=== PATIENT | female | born 1995 | race Hispanic/Latino ===

== ENCOUNTER 2019-01-04 08:05 | Inpatient (IN) | payer MEDICAID ==
--- NOTE | 2019-01-04 10:04 | History and Physical Report ---
History of Present Illness Date of examination: 01/04/19 Date of admission: 01/04/19 08:05 Chief complaint: Induction of labor History of present illness: Pt is a 23yo WF EDC 01/07/19; EGA 39 4/7 weeks presents to L&D for induction of labor due to Obesity per [facility]. She received care at [facility] since 9 weeks and co-managed by [facility] for Obesity. records are available and GBS is Positive. Past History Past Medical History: no pertinent history Past Surgical History: no surgical history Family/Genetic History: none Social history: no significant social history, - Obstetrical History Expected Date of Delivery: 01/07/19 Actual Gestation: 39 Week(s) 4 Day(s) : 2 Medications and Allergies Allergies Allergy/AdvReac Type Severity Reaction Status Date / Time No Known Allergies Allergy Verified 12/27/18 12:46 Review of Systems All systems: negative - Vital Signs Vital signs: Vital Signs Pulse BP 115 H 132/88 01/04/19 08:54 01/04/19 08:54 Temp Pulse Resp BP Pulse Ox 115 H 132/88 01/04/19 08:54 01/04/19 08:54 - Physical Exam Breasts: Positive: deferred Cardiovascular: Regular rate Lungs: Positive: Clear to auscultation Abdomen: Positive: normal appearance Genitourinary (Female): Positive: normal external genitalia Vagina: Positive: normal moisture Uterus: Positive: enlarged Extremities: Positive: normal - Obstetrical FHR: category 1 Uterine Contraction Monitor Mode: External Results Result Diagrams: 01/04/19 10:30 All other labs normal. Assessment and Plan - Patient Problems (1) 39 weeks gestation of Onset Date: 01/04/19 Current Visit: Yes Status: Acute Plan to address problem: A: IUP @ 39 4/7 weeks +GBS P: Admit to L&D for cervidil/pitocin induction of labor IV Ampicillin
[2019-01-04] MEDS ORDERED: OXYTOCIN DRIP 30 UNITS/500 ML BAG IV SCH ×2 (11:00)
[2019-01-04] MEDS ORDERED: OXYTOCIN 20 UNIT/1000ML DRIP 20 UNITS/1,000 ML BAG IV SCH (11:00)
[2019-01-04] MEDS ORDERED: TERBUTALINE 1 MG/1 ML INJ SUB-Q PRN (11:00)
[2019-01-04] MEDS ORDERED: MINERAL OIL 30 ML ORAL LIQD PO PRN (11:00)
[2019-01-04] MEDS ORDERED: ONDANSETRON 4 MG/2 ML INJ IV PRN (11:00)
[2019-01-04] MEDS ORDERED: BUTORPHANOL 2 MG/1 ML INJ IV PRN (11:00)
[2019-01-04] MEDS ORDERED: ePHEDrine SULFATE 50 MG/1 ML INJ IV PRN (11:00)
[2019-01-04] MEDS ORDERED: TERBUTALINE 1 MG/1 ML INJ IVP PRN (11:00)
[2019-01-04] MEDS ORDERED: LIDOCAINE (2%) 20 MG/1 ML VIAL 20 ML MDV INFILTRATI NR (11:00)
[2019-01-04 11:13] LABS: Hemoglobin 13.3 gm/dl (10.1-14.3); Mean Corpuscular HGB Conc 34 % (30-34); Mean Corpuscular Volume 86 fl (79-97); Platelet Count 289 K/mm3 (140-440); Red Blood Count 4.56 M/mm3 (3.65-5.03); Red Cell Distribution Width 13.9 % (13.2-15.2)
[2019-01-04] MEDS ORDERED: AMPICILLIN/NS 2 GM/100 ML 2 GM/100 ML BAG IV ONE (11:30)
[2019-01-04] MEDS: LACTATED RINGERS 1,000 ML IV SCH (11:36)
[2019-01-04] MEDS ORDERED: DINOPROSTONE 10 MG VAG SUPP VG ONE (12:00)
[2019-01-04] MEDS ORDERED: ZOLPIDEM 10 MG TAB PO PRN (22:00)
[2019-01-05] MEDS ORDERED: DINOPROSTONE 10 MG VAG SUPP VG ONE (00:37)
[2019-01-05] MEDS: fentaNYL 100 MCG/2 ML INJ IV PRN ×2 (03:38→05:22)
[2019-01-05] MEDS: AMPICILLIN/NS 1 GM/50 ML 1 GM/50 ML BAG IV SCH ×4 (06:33→14:57)
--- NOTE | 2019-01-05 08:50 | Progress Note ---
Assessment and Plan - Patient Problems (1) 39 weeks gestation of Onset Date: 01/04/19 Current Visit: Yes Status: Acute Plan to address problem: A: IUP @ 39 5/7 weeks +GBS P: Continue with pitocin induction of labor IV Ampicillin Expectant vaginal delivery Subjective - Subjective Date of service: 01/05/19 Principal diagnosis: IUP @ 39 5/7 weeks; Obesity Interval history: Pt is a 23yo WF EDC 01/07/19; EGA 39 5/7 weeks presents to L&D for induction of labor due to Obesity per [facility]. She received care at [facility] since 9 weeks and co-managed by [facility] for Obesity. She received cervidil last night and currently bert q 4-6 mins and cervix dilated 3cm. GBS is Positive. Patient reports: movement normal, contractions, no new complaints, no loss of fluid, no vaginal bleeding Objective - Vital Signs Vital Signs: Vital Signs - 12hr 01/04/19 01/04/19 01/04/19 21:15 21:45 23:10 Temperature Pulse Rate 86 96 H 103 H Respiratory Rate Blood Pressure 142/79 123/74 124/78 Blood Pressure [Right] 01/05/19 01/05/19 01/05/19 00:55 01:55 02:55 Temperature Pulse Rate 97 H 95 H 113 H Respiratory Rate Blood Pressure 126/78 118/73 114/91 Blood Pressure [Right] 01/05/19 01/05/19 01/05/19 03:55 04:38 04:55 Temperature Pulse Rate 96 H 108 H Respiratory 16 Rate Blood Pressure 115/58 136/75 Blood Pressure [Right] 01/05/19 01/05/19 01/05/19 05:22 05:55 07:37 Temperature 98.7 F Pulse Rate 101 H 103 H Respiratory 16 16 Rate Blood Pressure 141/76 129/84 Blood Pressure 129/84 [Right] - Exam Abdomen: Present: normal appearance, soft Uterus: Present: normal FHR: category 1 Uterine Contraction Monitor Mode: External Cervical Dilatation: 3 (per nurse) Cervical Effacement Percentage: 50 (per nurse) station: -2 Uterine Contraction Pattern: Irregular Uterine Tone Measurement Phase: Contraction Uterine Contraction Intensity: Moderate - Labs Labs: Abnormal Labs 01/04/19 10:30 WBC 12.5 H Laboratory Results - last 24 hr 0901/04/19 01/04/19 10:30 10:30 10:30 WBC 12.5 H RBC 4.56 Hgb 13.3 Hct 39.0 MCV 86 MCH 29 MCHC 34 RDW 13.9 Plt Count 289 RPR Nonreactive Blood Type A POSITIVE Antibody Screen Negative
[2019-01-05] MEDS ORDERED: ePHEDrine SULFATE 50 MG/1 ML INJ IV PRN (11:47)
[2019-01-05] MEDS ORDERED: NALOXONE 2 MG/2 ML INJ IV PRN (11:47)
--- NOTE | 2019-01-05 11:49 | Anesthesia Consultation ---
Anesthesia Consult and Med Hx Date of service: 01/05/19 - Airway Intubation Access Assessment: Possibly Difficult - Pre-Operative Health Status ASA Pre-Surgery Classification: ASA2 Proposed Anesthetic Plan: Epidural - Pulmonary Hx Respiratory Symptoms: No - Cardiovascular System Hx Hypertension: No - Central Nervous System Hx Neuromuscular Disorder: No Hx Seizures: No CVA: No Hx Psychiatric Problems: No - Endocrine Hx Renal Disease: No Hx Liver Disease: No Hx Insulin Dependent Diabetes: No Hx Non-Insulin Dependent Diabetes: No Hx Thyroid Disease: No - Hematic Hx Anemia: No - Other Systems Hx Obesity: Yes
[2019-01-05] MEDS ORDERED: fentaNYL-BUPIV 2 MCG/ML-0.125% 200 MCG/100 ML BAG EPIDURAL SCH (12:00)
[2019-01-05] MEDS: LACTATED RINGERS 1,000 ML IV SCH (14:14)
[2019-01-05] MEDS ORDERED: BUPIVACAINE/PF (0.25%) 2.5 MG/ML 10 ML VIAL INFILTRATI ONE (16:03)
[2019-01-05] MEDS ORDERED: LIDOCAINE (2%) 20 MG/1 ML VIAL 20 ML MDV INFILTRATI ONE (16:28)
--- NOTE | 2019-01-05 17:02 | Procedure Note ---
OB Delivery Note - Delivery Date of Delivery: 01/05/19 Surgeon: RAFAEL PACHECO Estimated blood loss: 100cc - Vaginal Delivery presentation: vertex Delivery position: OA Intrapartum events: PROM->1hr before delivery Delivery induction: cervidil Delivery augmentation: rupture of membranes, pitocin Delivery monitor: external FHT, external uterine Route of delivery: Delivery placenta: spontaneous Delivery cord: nuchal cord (x2), 3 umbilical vessels Episiotomy: none Delivery laceration: none Anesthesia: epidural Delivery comments: Infant delivered OA and placed on Mom's chest for [id number] bonding and delayed cord clamping, cut by Dad - Infant A at 1 minute: 8 at 5 minutes: 9 Infant Gender: Male (3070gms)
[2019-01-05] MEDS ORDERED: HYDROcodone/ACETAMINOPHEN 5-325 MG TAB PO PRN (17:03)
[2019-01-05] MEDS ORDERED: ONDANSETRON 4 MG/2 ML INJ IV PRN (17:03)
[2019-01-05] MEDS ORDERED: MAGNESIUM HYDROXIDE (MOM) ORAL LIQD UDC PO PRN (17:03)
[2019-01-05] MEDS ORDERED: LANOLIN/ZINC/DIMETHICONE (LANSINOH) 7 GM TP PRN (17:03)
[2019-01-05] MEDS ORDERED: PROMETHAZINE 25 MG RECT SUPP PR PRN (17:03)
[2019-01-05] MEDS ORDERED: PROMETHAZINE 25 MG TAB PO PRN (17:03)
[2019-01-05] MEDS ORDERED: WITCH HAZEL/ GLYCERIN PAD TP PRN (17:03)
[2019-01-05] MEDS ORDERED: diphenhydrAMINE 25 MG CAP PO PRN (17:03)
[2019-01-05] MEDS ORDERED: ACETAMINOPHEN 325 MG TAB PO PRN (17:03)
[2019-01-05] MEDS ORDERED: OXYTOCIN 20 UNIT/1000ML DRIP 20 UNITS/1,000 ML BAG IV SCH (18:00)
[2019-01-05] MEDS ORDERED: METHYLERGONOVINE MALEATE 0.2 MG/ML VIAL IM ONE (19:23)
[2019-01-05] MEDS: FERROUS SULFATE 325 MG TAB PO SCH (23:55)
[2019-01-05] MEDS: DOCUSATE SODIUM 100 MG CAP PO SCH (23:55)
[2019-01-05] MEDS: IBUPROFEN 600 MG TAB PO SCH (23:55)
[2019-01-06 05:09] LABS: Hematocrit 33.1 % (30.3-42.9)
[2019-01-06] MEDS ORDERED: TETANUS,DIPH,PERTUSS(ACELL) VACCINE 0.5 ML SYRINGE IM ONE (06:00)
[2019-01-06] MEDS: IBUPROFEN 600 MG TAB PO SCH ×2 (06:14→13:40)
--- NOTE | 2019-01-06 09:45 | Progress Note ---
Assessment and Plan - Patient Problems (1) 39 weeks gestation of Onset Date: 01/04/19 Current Visit: Yes Status: Resolved (2) (normal spontaneous vaginal delivery) Onset Date: 01/06/19 Current Visit: Yes Status: Resolved Plan to address problem: A: S/P - PPD #1 Doing well Asymptomatic anemia - stable P: May go home tomorrow. Subjective - Subjective Date of service: 01/06/19 Principal diagnosis: s/p - PPD #1 Interval history: Pt is feeling well without complaints. Bleeding improved. Patient reports: appetite normal, voiding normally, pain well controlled, flatus, ambulating normally, no dizzy ambulation, no nauseated [place]: doing well, nursing well Objective - Vital Signs Latest vital signs: Vital Signs Temp Pulse Resp BP BP Pulse Ox 01/06/19 08:12 98.4 F 82 18 116/73 97 01/06/19 06:37 18 01/06/19 06:14 18 01/06/19 04:40 98.5 F 89 20 124/73 98 01/06/19 01:40 98.4 F 91 H 20 119/70 97 01/06/19 00:55 18 01/05/19 23:55 18 01/05/19 20:41 98.8 F 98 H 18 125/80 95 01/05/19 19:02 97 H 119/69 01/05/19 18:47 100 H 115/63 01/05/19 18:32 116 H 125/76 01/05/19 18:17 112 H 118/74 01/05/19 18:04 109 H 125/79 01/05/19 17:47 107 H 132/76 01/05/19 17:32 114 H 135/73 01/05/19 17:18 117 H 132/64 01/05/19 17:10 98.1 F 01/05/19 16:48 142 H 136/88 01/05/19 16:40 79 L 01/05/19 16:38 159 H 99 01/05/19 16:35 149 H 91 01/05/19 16:33 149 H 99 01/05/19 16:28 149 H 99 01/05/19 16:24 142 H 87 01/05/19 16:23 138 H 99 01/05/19 16:18 128 H 100 01/05/19 16:17 127 H 132/78 01/05/19 16:13 115 H 100 01/05/19 16:08 119 H 100 01/05/19 16:03 117 H 99 01/05/19 15:58 112 H 100 01/05/19 15:53 117 H 98 01/05/19 15:48 120 H 140/67 99 01/05/19 15:43 119 H 99 01/05/19 15:38 117 H 98 01/05/19 15:33 111 H 98 01/05/19 15:28 108 H 98 01/05/19 15:23 111 H 97 01/05/19 15:18 100 H 97 01/05/19 15:17 98 H 128/68 01/05/19 15:13 98 H 96 01/05/19 15:08 95 H 98 01/05/19 15:03 102 H 98 01/05/19 14:58 96 H 98 01/05/19 14:53 100 H 97 01/05/19 14:48 102 H 98 01/05/19 14:47 107 H 121/75 01/05/19 14:43 98 H 99 01/05/19 14:38 105 H 98 01/05/19 14:33 100 H 99 01/05/19 14:28 96 H 98 01/05/19 14:23 97 H 98 01/05/19 14:18 100 H 98 01/05/19 14:13 107 H 98 01/05/19 14:12 109 H 113/66 01/05/19 14:01 130 H 98 01/05/19 13:56 123 H 98 01/05/19 13:51 123 H 97 01/05/19 13:46 120 H 150/97 98 01/05/19 13:41 123 H 97 01/05/19 13:36 118 H 97 01/05/19 13:31 118 H 97 01/05/19 13:26 121 H 96 01/05/19 13:21 127 H 96 01/05/19 13:18 118 H 143/84 01/05/19 13:16 124 H 97 01/05/19 13:14 122 H 149/81 01/05/19 13:12 131 H 161/67 01/05/19 13:10 126 H 148/96 01/05/19 13:08 133 H 149/89 01/05/19 13:06 133 H 168/78 01/05/19 13:04 129 H 178/77 01/05/19 13:03 130 H 166/105 01/05/19 13:00 125 H 151/89 01/05/19 12:58 131 H 148/93 01/05/19 12:56 136 H 159/87 01/05/19 12:54 142 H 155/85 01/05/19 12:52 130 H 152/83 01/05/19 12:50 136 H 150/84 01/05/19 12:48 141 H 151/82 01/05/19 12:46 139 H 160/82 01/05/19 12:44 134 H 150/81 01/05/19 12:42 139 H 147/81 01/05/19 12:40 136 H 176/78 01/05/19 12:38 141 H 165/79 01/05/19 12:36 150 H 153/101 01/05/19 12:35 157 H 202/108 01/05/19 12:32 160 H 172/132 01/05/19 12:28 164 H 172/88 01/05/19 12:26 153 H 156/102 01/05/19 12:24 135 H 99 01/05/19 12:22 139 H 123/87 01/05/19 12:20 129 H 125/80 01/05/19 12:19 131 H 97 01/05/19 12:18 131 H 132/82 01/05/19 12:16 130 H 130/85 01/05/19 12:15 98.6 F 01/05/19 12:14 131 H 126/89 97 01/05/19 12:12 133 H 126/86 01/05/19 12:10 129 H 126/86 01/05/19 12:09 133 H 98 01/05/19 12:07 130 H 133/92 01/05/19 12:06 133 H 131/78 01/05/19 12:00 118 H 129/80 01/05/19 11:58 119 H 97 01/05/19 11:56 126 H 147/87 01/05/19 11:54 88 131/100 93 01/05/19 11:53 130 H 99 01/05/19 11:52 130 H 129/93 01/05/19 11:50 146 H 125/91 01/05/19 11:48 134 H 98 01/05/19 11:45 117 H 124/87 01/05/19 11:43 119 H 96 01/05/19 11:38 115 H 96 01/05/19 11:33 121 H 96 01/05/19 11:31 122 H 131/93 01/05/19 11:28 128 H 99 Intake and Output 01/05/19 01/06/19 01/06/19 22:59 06:59 14:59 Intake Total 143.867 480 Output Total 1100 1100 Balance -956.133 -620 Intake: IV 23.867 PITOCin/NS 30 UNIT/500ML 23.867 30 units In 500 ml @ 4 mls/hr IV TITR MERRICK Rx#: [id number] Oral 360 Intake, Free Water 120 120 Output: Urine 1100 1100 Indwelling Catheter 600 Self-Catheterization 200 Void 300 1100 Other: Total, Intake Amount 360 Total, Output Amount 300 600 # Voids Void 1 1 Estimated Blood Loss 100 - Exam Breasts: Present: deferred Abdomen: Present: normal appearance, soft Uterus: Present: normal, firm, fundal height below umbilicus Extremities: Present: normal - Labs Labs: Laboratory Tests 01/04/19 01/04/19 01/04/19 10:30 10:30 10:30 WBC 12.5 H RBC 4.56 Hgb 13.3 Hct 39.0 MCV 86 MCH 29 MCHC 34 RDW 13.9 Plt Count 289 RPR Nonreactive Blood Type A POSITIVE Antibody Screen Negative 01/06/19 04:38 WBC RBC Hgb 11.0 Hct 33.1 MCV MCH MCHC RDW Plt Count RPR Blood Type Antibody Screen
[2019-01-06] MEDS: DOCUSATE SODIUM 100 MG CAP PO SCH (13:40)
[2019-01-06] MEDS: PRENATAL VIT27-FE FUMARATE-FOLIC ACID VIT TAB PO SCH (13:40)
[2019-01-06] MEDS: FERROUS SULFATE 325 MG TAB PO SCH (13:40)
[2019-01-06] MEDS ORDERED: MEASLES, MUMPS & RUBELLA 12,500 UNIT/0.5 ML VACCINE SUB-Q ONE (17:03)
[2019-01-07] MEDS: FERROUS SULFATE 325 MG TAB PO SCH ×3 (00:11→21:48)
[2019-01-07] MEDS: IBUPROFEN 600 MG TAB PO SCH ×2 (00:11→05:39)
[2019-01-07] MEDS: DOCUSATE SODIUM 100 MG CAP PO SCH ×3 (00:11→21:48)
--- NOTE | 2019-01-07 10:31 | Discharge Summary ---
Providers - Providers Date of Admission: 01/04/19 08:05 Date of discharge: 01/07/19 Attending physician: RAFAEL PACHECO Primary care physician: RAFAEL PACHECO Hospitalization Reason for admission: induction of labor, IUP at term Delivery: Episiotomy: none Laceration: none Other procedures: none complications: none Discharge diagnosis: IUP at term delivered [place] baby: male Hospital course: Unremarkable. Condition at discharge: Good Disposition: DC-01 TO HOME OR SELFCARE - Discharge Diagnoses (1) 39 weeks gestation of Status: Resolved (2) (normal spontaneous vaginal delivery) Status: Resolved Plan - Discharge Medications Prescriptions: Ferrous Sulfate [Feosol 325 MG tab] 325 mg PO BID #60 tablet Ibuprofen [Motrin 600 MG tab] 600 mg PO Q6HR #30 tablet Vit-Fe Fumar-FA [ Vitamin] 1 each PO QDAY #30 tablet - Provider Discharge Summary Activity: routine, no sex for 6 weeks, no heavy lifting 4 weeks, no strenuous exercise Diet: routine Instructions: routine Additional instructions: [] Smoking cessation referral if applicable(refer to patient education folder for contact #) [] Refer to [facility]'s [facility] Booklet Call your doctor immediately for: * Fever > 100.5 * Heavy vaginal bleeding ( >1 pad per hour) * Severe persistent headache * Shortness of breath * Reddened, hot, painful area to leg or breast * Drainage or odor from incision. * Keep incision clean and dry at all times and follow doctor's instructions regarding bathing/showering - Follow up plan Follow up: RAFAEL PACHECO MD [Primary Care Provider] - 6 Weeks ELEANOR RAY NP [Referring] - 6 Weeks
[2019-01-07] MEDS: PRENATAL VIT27-FE FUMARATE-FOLIC ACID VIT TAB PO SCH (10:36)
[2019-01-07 23:11] VITALS: BP 122/76
== END 2019-01-07 23:20 | disposition home or self-care (01) | DRG 775 ==
LOC: LD 08:05 → OB 01-05 20:32
PROVIDERS: ADMIT Obstetrics & Gynecology; ATTEND Obstetrics & Gynecology
PROC: 3E0P7VZ Introduction of Hormone into Female Reproductive, Via Natural or Artificial Opening (ICD-10-PCS; principal; 2019-01-05)
PROC: 10E0XZZ Delivery of Products of Conception, External Approach (ICD-10-PCS; 2019-01-05)
PROC: 3E0R3BZ Introduction of Anesthetic Agent into Spinal Canal, Percutaneous Approach (ICD-10-PCS; 2019-01-05)
PROC: 00HU33Z Insertion of Infusion Device into Spinal Canal, Percutaneous Approach (ICD-10-PCS; 2019-01-05)
PROC: 3E0234Z Introduction of Serum, Toxoid and Vaccine into Muscle, Percutaneous Approach (ICD-10-PCS; 2019-01-06)
DX: O99.214 Obesity complicating childbirth (principal); Z37.0 Single live birth; E66.9 Obesity, unspecified; O99.824 Streptococcus B carrier state complicating childbirth; O69.81X0 Labor and delivery complicated by cord around neck, without compression, not applicable or unspecified; O42.92 Full-term premature rupture of membranes, unspecified as to length of time between rupture and onset of labor; O90.81 Anemia of the puerperium; D64.9 Anemia, unspecified; Z23 Encounter for immunization; Z3A.39 39 weeks gestation of pregnancy
CPT/HCPCS: 36415; 59200; 85014; 85018; 85027; 86592; 86850; 86900; 86901; 90471; 90715; G0378; J0290; J0595; J2210; J2590; J3010; J7120

== ENCOUNTER 2020-02-08 22:18 | Outpatient (CLI) | payer MEDICAID ==
[2020-02-08 22:49] VITALS: BP 132/64
[2020-02-08] MEDS ORDERED: LACTATED RINGERS 1,000 ML IV ONE (22:59)
--- NOTE | 2020-02-09 00:12 | Ultrasound Report ---
ULTRASOUND OBSTETRIC LIMITED ULTRASOUND BIOPHYSICAL PROFILE INDICATION / CLINICAL INFORMATION: well-being. Clinical Gestational Age (GA): 32.3 weeks.days COMPARISON: None available. FINDINGS: BREATHING MOVEMENT = 2 GROSS BODY MOVEMENT = 2 TONE = 2 QUALITATIVE AMNIOTIC FLUID VOLUME = 2 TOTAL BIOPHYSICAL SCORE = 8/8 HEART RATE (beats per minute): 141 AMNIOTIC FLUID INDEX (cm) = 11.4 (normal = 7-24 cm) PRESENTATION: Cephalic. ADDITIONAL FINDINGS: None. IMPRESSION: 1. Biophysical Score = 8/8 2. RODRIGUEZ 11.4 cm Signer Name: Floyd Carreno MD Signed: 02/09/2020 12:07 AM Workstation Name: [id number]
== END 2020-02-09 00:03 | disposition home or self-care (01) ==
LOC: TRG 22:18 → APU 22:19 → TRG 02-09 00:03
PROVIDERS: ATTEND Obstetrics & Gynecology
DX: O42.913 Preterm premature rupture of membranes, unspecified as to length of time between rupture and onset of labor, third trimester (principal); Z3A.32 32 weeks gestation of pregnancy
CPT/HCPCS: 59025; 76815; 76819

== ENCOUNTER 2020-03-17 12:22 | Inpatient (IN) | payer MEDICAID ==
[2020-03-17] MEDS ORDERED: TERBUTALINE 1 MG/1 ML INJ SUB-Q PRN (14:34)
[2020-03-17] MEDS ORDERED: AMPICILLIN/NS 2 GM/100 ML 2 GM/100 ML BAG IV ONE (14:34)
[2020-03-17] MEDS ORDERED: fentaNYL 100 MCG/2 ML INJ IV PRN (14:34)
[2020-03-17] MEDS ORDERED: LIDOCAINE (2%) 20 MG/1 ML VIAL 20 ML MDV INFILTRATI ONE (14:34)
[2020-03-17] MEDS ORDERED: MINERAL OIL 30 ML ORAL LIQD PO PRN (14:34)
--- NOTE | 2020-03-17 14:45 | History and Physical Report ---
History of Present Illness Date of examination: 03/17/20 Date of admission: 03/17/2020 Chief complaint: Leaking of water from vagina History of present illness: 24 year old presents to L&D with complaint of leaking of fluid from vagina since 10:30 AM today. Patient states she receives care from [facility]; records are not available. labs were drawn upon admission. Patient denies any complications during this except for LGA. She reports she is not allergic to any medications. She reports a history of 2 previous vaginal births without complications. Past History Past Medical History: other (obesity) Past Surgical History: no surgical history QUALITY REVIEWER History: denies: chlamydia, gonorrhea, hepatitis B, hepatitis C, herpes, HIV, syphilis, trichomonas Family/Genetic History: none Social history: no significant social history, full code. denies: smoking, alcohol abuse, prescription drug abuse, IV drug use - Obstetrical History Expected Date of Delivery: 04/01/20 Actual Gestation: 37 Week(s) 6 Day(s) : 3 Para: 2 Hx # Term Pregnancies: 2 Number of Pregnancies: 0 Spontaneous Abortions: 0 Induced : 0 Number of Living Children: 2 Medications and Allergies Allergies Allergy/AdvReac Type Severity Reaction Status Date / Time No Known Allergies Allergy Verified 12/27/18 12:46 Home Medications Medication Instructions Recorded Confirmed Last Taken Type Ferrous Sulfate [Feosol 325 MG tab] 325 mg PO BID #60 tablet 01/07/19 Unknown Rx Ibuprofen [Motrin 600 MG tab] 600 mg PO Q6HR #30 tablet 01/07/19 Unknown Rx Vit-Fe Fumar-FA [ 1 each PO QDAY #30 tablet 01/07/19 Unknown Rx Vitamin] Active Meds: Active Medications Ephedrine Sulfate (Ephedrine Sulfate) 10 mg IV Q2M PRN PRN Reason: Hypotension Fentanyl (Sublimaze) 100 mcg IV Q2H PRN PRN Reason: Pain,Severe (7-10) LABOR PAIN Oxytocin/Sodium Chloride (Pitocin/Ns 30 Unit/500ml) 30 units in 500 mls @ 2 mls/hr IV TITR MERRICK; Protocol Lactated Ringer's (Lactated Ringers) 1,000 mls @ 125 mls/hr IV DIRECT MERRICK Oxytocin/Sodium Chloride (Pitocin/Ns 30 Unit/500ml) 30 units in 500 mls @ 40 mls/hr IV TITR MERRICK; Protocol Ampicillin Sodium (Ampicillin/Ns 2 Gm/100 Ml) 2 gm in 100 mls @ 100 mls/hr IV ONCE ONE; Protocol Stop: 03/17/20 15:33 Ampicillin Sodium (Ampicillin/Ns 1 Gm/50 Ml) 1 gm in 50 mls @ 100 mls/hr IV Q4HR MERRICK; Protocol Mineral Oil (Mineral Oil) 30 ml PO QHS PRN PRN Reason: Constipation Terbutaline Sulfate (Brethine) 0.25 mg SUB-Q ONCE PRN PRN Reason: Hyperstimulation/Hypertonicity Review of Systems All systems: negative (leaking of clear water from vagina since 10:30 am today) - Vital Signs Vital signs: Vital Signs Pulse BP Pulse Ox 108 H 137/83 93 03/17/20 13:11 03/17/20 13:11 03/17/20 13:11 Temp Pulse Resp BP Pulse Ox 98.8 F 98 H 18 125/73 97 03/17/20 13:14 03/17/20 14:38 03/17/20 13:14 03/17/20 14:35 03/17/20 14:38 - Physical Exam Abdomen: Positive: normal appearance, soft. Negative: distention, tenderness, guarding, rigidity Genitourinary (Female): Positive: normal external genitalia, normal perenium. Negative: perineal/vulvar lesions Vagina: Positive: other (clear fluid) Uterus: Positive: enlarged. Negative: tender Anus/Rectum: Positive: normal perianal skin Extremities: Positive: edema (mild bilateral dependent edema). Negative: tenderness - Obstetrical FHR: category 1 Uterine Contraction Monitor Mode: External Cervical Dilatation: 4 Cervical Effacement Percentage: 90 station: -3 Uterine Contraction Pattern: Regular Uterine Contraction Intensity: Moderate Results All other labs normal. Assessment and Plan A: at 37 weeks, 6 days gestation (by patient self report). Spontaneous rupture of membranes. Labor. GBS unknown. No records available. P: Admit. Draw labs. Request records. US for EDC, EGA, EFW, and location of placenta. GBS prophylaxis. Pitocin augmentation if no cervical change in several hours (since SROM).
--- NOTE | 2020-03-17 14:52 | Anesthesia Consultation ---
Anesthesia Consult and Med Hx Date of service: 03/17/20 - Airway Anesthetic Teeth Evaluation: Good ROM Head & Neck: Adequate Mental/Hyoid Distance: Adequate Mallampati Class: Class II Intubation Access Assessment: Probably Good - Pulmonary Exam CTA: Yes - Cardiac Exam Cardiac Exam: RRR - Pre-Operative Health Status ASA Pre-Surgery Classification: ASA2 Proposed Anesthetic Plan: Epidural - Pulmonary Hx Asthma: No Hx Respiratory Symptoms: No COPD: No Hx Pneumonia: No - Cardiovascular System Hx Hypertension: No - Central Nervous System Hx Neuromuscular Disorder: No Hx Seizures: No CVA: No Hx Psychiatric Problems: No - Endocrine Hx Renal Disease: No Hx End Stage Renal Disease: No Hx Liver Disease: No Hx Insulin Dependent Diabetes: No Hx Non-Insulin Dependent Diabetes: No Hx Thyroid Disease: No Hx Hypothyroidism: No Hx Hyperthyroidism: No - Hematic Hx Anemia: No Hx Sickle Cell Disease: No - Other Systems Hx Alcohol Use: (not since ) Hx Obesity: Yes
[2020-03-17] MEDS ORDERED: OXYTOCIN DRIP 30 UNITS/500 ML BAG IV SCH ×2 (15:00)
--- NOTE | 2020-03-17 16:36 | Ultrasound Report ---
ULTRASOUND OBSTETRIC INDICATION / CLINICAL INFORMATION: EGA, EDC, EFW, location of placenta. Clinical Gestational Age (GA): 37 weeks 6 days TECHNIQUE: Transabdominal. COMPARISON: OB ultrasound 02/08/2020 FINDINGS: There is a single intrauterine . Biparietal Diameter = 9.6 cm = 39 weeks, 1 day(s). Head Circumference = 33.7 cm = 38 weeks, 4 day(s). Abdominal Circumference = 35.9 cm = 39 weeks, 5 day(s). Femur Length = 7.1 cm = 36 weeks, 2 day(s). Average Ultrasound Age (AUA) = 36 weeks, 3 day(s). Heart Rate: 129 beats per minute. Estimated Weight in grams (if calculated): 3599 Estimated Weight Growth Percentile (if calculated): Position: cephalic. Cervix: closed. Length in cm (if measured): Placenta: anterior and free of the os. Amniotic Fluid Volume: decreased Amniotic Fluid Index (RODRIGUEZ) in cm (if calculated): 2.3. Maternal Adnexa: No significant abnormality. IMPRESSION: 1. Single, living intrauterine with estimated sonographic age of 38 weeks, 3 day(s). 2. Oligohydramnios Signer Name: Iglesia Bueno MD Signed: 03/17/2020 4:31 PM Workstation Name: [id number]
[2020-03-17 16:49] LABS: Hematocrit 39.7 % (30.3-42.9); Hemoglobin 13.2 gm/dl (10.1-14.3); Mean Corpuscular HGB Conc 33 % (30-34); Mean Corpuscular Volume 86 fl (79-97); Platelet Count 295 K/mm3 (140-440); Red Blood Count 4.62 M/mm3 (3.65-5.03); Red Cell Distribution Width 13.9 % (13.2-15.2)
[2020-03-17] MEDS: LACTATED RINGERS 1,000 ML IV SCH ×2 (17:04→22:12)
[2020-03-17 17:06] LABS: Hepatitis C Virus Antibody Non-Reactive (NonReactive)
[2020-03-17] MEDS ORDERED: AMPICILLIN/NS 1 GM/50 ML 1 GM/50 ML BAG IV SCH (18:37)
[2020-03-17] MEDS ORDERED: ePHEDrine SULFATE 50 MG/1 ML INJ IV PRN (21:22)
[2020-03-17] MEDS ORDERED: NALOXONE 2 MG/2 ML INJ IV PRN (21:22)
--- NOTE | 2020-03-17 21:22 | Progress Note ---
Labor Epidural - Labor Epidural Start Time: 21:13 Stop Time: 21:17 Performed by:: BRAIN RIDER Procedure: Patient is requesting epidural for labor pain. H&P, and labs reviewed. Procedure explained, questions answered, consent obtained. Patient in sitting position with blood pressure cuff and pulse ox on and working. Timeout performed immediately before start of procedure. Sterile betadine prep/drape. 3 mL 1% lidocaine skin wheal at L[3]-L[4]. 18-gauge SupportSpace epidural needle advanced to [id number] with saline at [7] cm. Epidural dexmedetomidine [30] mcg administered. Epidural catheter advanced to [12] cm, negative aspiration for blood and csf, negative test dose 3 ml 1.5% lidocaine with epinephrine. Sterile steri-strips and tegaderm applied, followed by tape reinforcement. Patient tolerated procedure well.
[2020-03-17] MEDS: ePHEDrine SULFATE 50 MG/1 ML INJ IV PRN ×3 (21:31→22:11)
[2020-03-17] MEDS ORDERED: fentaNYL-BUPIV 2 MCG/ML-0.125% 200 MCG/100 ML BAG EPIDURAL SCH (22:00)
[2020-03-18] MEDS ORDERED: GENTAMICIN 100 MG in SODIUM CHLORIDE 0.9% 100 ML IV SCH (01:00)
--- NOTE | 2020-03-18 01:11 | Event Note ---
Date: 03/18/20 Patient with elevated heart rate: 115-140s. When questioned, nurse states patient has received 3 doses of ephedrine after epidural. Patient denies fever or chills. Patient denies chest pain or shortness of breath or cough. Patient is alert and oriented. Afebrile. Abdomen soft, nontender. No uterine tenderness. Category 1 FHR tracing. EGK, CBC, CMP, urine culture, blood cultures ordered. Ampicillin and Gentamicin ordered.
[2020-03-18] MEDS ORDERED: GENTAMICIN/NS 120MG/100ML 120 MG/100 ML BAG IV SCH (02:00)
[2020-03-18 02:08] LABS: Basophils % (Auto) 0.2 % (0.0-1.8); Eosinophils % (Auto) 0.2 % (0.0-4.3); Lymphocytes # (Auto) 1.7 K/mm3 (1.2-5.4); Lymphocytes % (Auto) 13.9 % (13.4-35.0); Mean Corpuscular HGB Conc 33 % (30-34); Mean Corpuscular Volume 85 fl (79-97); Monocytes # (Auto) 0.6 K/mm3 (0.0-0.8); Monocytes % (Auto) 4.9 % (0.0-7.3); Platelet Count 240 K/mm3 (140-440); Red Blood Count 3.87 M/mm3 (3.65-5.03)
[2020-03-18 02:25] LABS: Alanine Aminotransferase 8 units/L (7-56); Albumin 3.2 g/dL (3.9-5); Blood Urea Nitrogen 7 mg/dL (7-17); Calcium 8.9 mg/dL (8.4-10.2); Hemolysis Index 1
[2020-03-18] MEDS ORDERED: AMPICILLIN/NS 2 GM/100 ML 2 GM/100 ML BAG IV SCH (02:30)
--- NOTE | 2020-03-18 03:02 | Event Note ---
Date: 03/18/20 EKG showed sinus tachycardia with HR of 120 bpm. Patient is receiving ampicillin and gentamicin. Labs pending. Category 1 FHR tracing. Patient is comfortable. Regular contractions. Temp. 99.0. Consulted with Dr. Perez re: this patient and maternal tachycardia, interventions taken, IV antibiotics given. Dr. Perez states he is in agreement with this plan of care. No new orders received. Will continue Pitocin augmentation of labor.
[2020-03-18] MEDS ORDERED: ACETAMINOPHEN 325 MG TAB PO ONE (03:08)
[2020-03-18 03:25] LABS: BUN/Creatinine Ratio 18
[2020-03-18 04:30] LABS: Bilirubin,Urine NEG (Negative); Blood,Urine NEG (Negative); Color,Urine Yellow (Yellow); Mucus,Urine FEW /HPF; Protein,Urine <15 mg/dL mg/dL (Negative)
--- NOTE | 2020-03-18 05:08 | Event Note ---
Date: 03/18/20 SVE 0.
[2020-03-18] MEDS ORDERED: miSOPROStol 200 MCG TAB ONE (06:09)
[2020-03-18] MEDS ORDERED: WITCH HAZEL/ GLYCERIN PAD TP PRN (06:27)
[2020-03-18] MEDS ORDERED: LANOLIN/ZINC/DIMETHICONE (LANSINOH) 7 GM TP PRN (06:27)
[2020-03-18] MEDS ORDERED: MAGNESIUM HYDROXIDE (MOM) ORAL LIQD UDC PO PRN (06:27)
[2020-03-18] MEDS ORDERED: miSOPROStol 200 MCG TAB PR ONE (06:32)
--- NOTE | 2020-03-18 06:32 | Procedure Note ---
OB Delivery Note - Delivery Date of Delivery: 03/18/20 Surgeon: CHRISTIN DE LA CRUZ Estimated blood loss: 300cc - Vaginal Delivery presentation: vertex Delivery position: OA Intrapartum events: none Delivery induction: none Delivery augmentation: pitocin Delivery monitor: external FHT, external uterine Route of delivery: Delivery placenta: spontaneous Delivery cord: 3 umbilical vessels Episiotomy: none Delivery laceration: none Anesthesia: epidural Delivery comments: Spontaneous vaginal delivery at 06:07 of liveborn male weighing 8 lb. 4 oz. over intact perineum with apgars of 8/8. Epidural anesthesia. Patient received ampicillin and gentamicin during labor for suspected chorioamnionitis. of baby was atraumatic; loose nuchal cord times 1, manually reduced on perineum. Baby placed skin to skin with mom immediately after . Spontaneous cry and respirations. Baby dried with warm towels and suctioned with bulb syringe. 3 vessel cord double clamped and cut. Spontaneous delivery of intact placenta and membranes by cordero mechanism at 06:09. EBL 300 cc. Pitocin to IV fluids after delivery of placenta. Cytotec 800 mcg given rectally for uterine atony. Fundus firmed with massage. No lacerations noted. Vaginal sweep negative. Sponge count correct. Mother and baby stable. Placenta to pathology.
[2020-03-18 07:23] LABS: Hematocrit 34.2 % (30.3-42.9); Hemoglobin 11.3 gm/dl (10.1-14.3)
--- NOTE | 2020-03-18 09:54 | Post Anesthesia Evaluation ---
- Post Anesthesia Evaluation Patient Participated: Yes Airway Patent: Yes Stable Respiratory Function: Yes Nausea/Vomiting: No Temp > 96.8F: Yes Pain Manageable: Yes Adequeate Hydration: Yes Anesthesia Complications: No Block Receding Appropriately: No Patient on Ventilator: No Other Comments: Pt states she still has numbness/tingling in her R foot, no motor weakness. She described a parathesia with motor involvement during her epidural placement. She was advised that it would likely resolve on its own, but that she would be re-evaluated later.
[2020-03-18] MEDS: IBUPROFEN 600 MG TAB PO SCH ×3 (12:10→19:48)
[2020-03-18] MEDS: HYDROcodone/ACETAMINOPHEN 5-325 MG TAB PO PRN (19:41)
[2020-03-19] MEDS: IBUPROFEN 600 MG TAB PO SCH ×2 (09:47)
--- NOTE | 2020-03-19 09:59 | Progress Note ---
Subjective Date of service: 03/19/20 Principal diagnosis: residual numbness Interval history: Pt states her numbness/tingling had resolved significantly since yesterday. She states it was almost completely back to normal. Objective - Constitutional Vitals: Vital Signs - 12hr 03/19/20 03/19/20 00:47 08:54 Temperature 97.7 F 98.2 F Pulse Rate 91 H 86 Respiratory 20 18 Rate Blood Pressure 114/72 127/97 O2 Sat by Pulse 97 97 Oximetry - Labs CBC & Chem 7: 03/18/20 07:02 03/18/20 01:27
[2020-03-19] MEDS ORDERED: FERROUS SULFATE 325 MG TAB PO SCH (10:00)
--- NOTE | 2020-03-19 11:05 | Discharge Summary ---
Providers - Providers Date of Admission: 03/18/20 08:16 Date of discharge: 03/19/20 Attending physician: KOJO KEYES JR, MD Primary care physician: KOJO KEYES JR, MD Hospitalization Reason for admission: active labor Delivery: Episiotomy: none Laceration: none Other procedures: none complications: none Discharge diagnosis: IUP at term delivered baby: male Hospital course: See admission H & P; OB delivery summary and PP progress notes Condition at discharge: Good Disposition: DC-01 TO HOME OR SELFCARE - Discharge Diagnoses (1) (normal spontaneous vaginal delivery) Status: Resolved Plan - Provider Discharge Summary Activity: routine, no sex for 6 weeks, no heavy lifting 4 weeks, no strenuous exercise Diet: other (Iron rich diet) Instructions: routine Additional instructions: [] Smoking cessation referral if applicable(refer to patient education folder for contact #) [] Refer to [facility]'s [facility] Booklet Call your doctor immediately for: * Fever > 100.5 * Heavy vaginal bleeding ( >1 pad per hour) * Severe persistent headache * Shortness of breath * Reddened, hot, painful area to leg or breast - Follow up plan Follow up: KOJO KEYES JR, MD [Primary Care Provider] - 6 Weeks Forms: [facility] Discharge Summary
[2020-03-19] MEDS: HYDROcodone/ACETAMINOPHEN 5-325 MG TAB PO PRN (11:38)
[2020-03-19 13:23] VITALS: BP 131/88
== END 2020-03-19 13:36 | disposition home or self-care (01) | DRG 775 ==
LOC: TRG 12:22 → APU 12:23 → LD 14:34 → TRG 14:44 → UNDOADMIN 14:45 → LD 14:45 → OB 03-18 08:16
PROVIDERS: ADMIT Obstetrics & Gynecology; ATTEND Obstetrics & Gynecology
PROC: 3E0R3BZ Introduction of Anesthetic Agent into Spinal Canal, Percutaneous Approach (ICD-10-PCS; 2020-03-17)
PROC: 00HU33Z Insertion of Infusion Device into Spinal Canal, Percutaneous Approach (ICD-10-PCS; 2020-03-17)
PROC: 10E0XZZ Delivery of Products of Conception, External Approach (ICD-10-PCS; principal; 2020-03-18)
PROC: 3E0P7VZ Introduction of Hormone into Female Reproductive, Via Natural or Artificial Opening (ICD-10-PCS; 2020-03-18)
DX: O42.02 Full-term premature rupture of membranes, onset of labor within 24 hours of rupture (principal); Z3A.37 37 weeks gestation of pregnancy; Z37.0 Single live birth; O69.81X0 Labor and delivery complicated by cord around neck, without compression, not applicable or unspecified; O99.214 Obesity complicating childbirth; E66.9 Obesity, unspecified; Z20.828 Contact with and (suspected) exposure to other viral communicable diseases
CPT/HCPCS: 36415; 59025; 76815; 76816; 80053; 81001; 83036; 85014; 85018; 85025; 85027; 86592; 86706; 86762; 86803; 86850; 86870; 86900; 86901; 87040; 87086; 87806; 88307; 93005; 96360; 96361; 96365; 96366; G0378; J0290; J1580; J2590; J7120; U0003